=== PATIENT | male | born 1970 | race Caucasian/White ===

== ENCOUNTER → 2017-01-24 | Outpatient (CLI) | payer BC ==
[~2017-01-24] MED LIST: FLOXIN OTIC DROP5 ML OT; LEVAQUIN 5500 MG/TA1 PO; NORCO 325 MG-51 TAB PO; PERCOCET 325 MG1 TA2 PO
== END ==
LOC: COL.RAD 13:25
DX: N43.3 Hydrocele, unspecified (principal); I86.1 Scrotal varices; N50.89 Other specified disorders of the male genital organs

== ENCOUNTER 2017-01-28 12:21 | Emergency (ER) | payer BC ==
[~2017-01-28] VITALS: Ht 182.9 cm; Wt 80.5 kg
[2017-01-28 12:25] VITALS: TEMP 98.5
[2017-01-28] MEDS ORDERED: LEVAQUIN 5500 MG/TA1 PO (12:28)
[2017-01-28] MEDS ORDERED: NORCO 325 MG-51 TAB PO (12:29)
[2017-01-28 13:41] LABS: BASO % 0.4 % (0.0-2.0); EOS # 0.2 (0.0-0.7); EOS % 2.3 % (0-4.0); GRAN # 4.6 (1.4-6.5); GRAN % 66.1 % (42.2-75.2); HEMATOCRIT 42.3 % (42.0-52.0); HEMOGLOBIN 14.5 g/dl (13.5-18.0); LYMPH # 1.6 (1.2-3.4); LYMPH % 23.4 % (20.0-51.0); MEAN CELL VOLUME 87 fl (80.0-100.0); MEAN CORPUSCULAR HEMOGLOBIN 30 pg (27.0-31.0); MEAN CORPUSCULAR HGB CONC 34 g/dl (33.0-37.0); MONO # 0.5 (0.1-0.6); MONO % 7.5 % (1.7-9.3); PLATELET COUNT 244 K/mm3 (130-400); RED BLOOD COUNT 4.85 M/mm3 (4.20-5.60); REDCELL DISTRIBUTION WIDTH-CV 12.3 % (11.5-14.5); WHITE BLOOD COUNT 6.9 K/mm3 (4.8-10.8)
[2017-01-28 13:56] LABS: ADJUSTED CALCIUM 8.7 mg/dL (8.4-10.2); ALANINE AMINOTRANSFERASE 34 U/L (21-72); ALBUMIN 4.4 gm/dL (3.5-5.0); ALKALINE PHOSPHATASE 88 U/L (50-136); ANION GAP 10 mmol/L (7-16); BILIRUBIN,TOTAL 0.5 mg/dL (0.0-1.0); BLOOD UREA NITROGEN 17 mg/dL (9-20); CARBON DIOXIDE 25 mmol/L (22-30); CHLORIDE 102 mmol/L (98-107); CREATININE, serum 0.84 mg/dL (0.66-1.25); GLUCOSE 115 mg/dL (74-106); POTASSIUM 4.1 mmol/L (3.4-5.0); SODIUM 136 mmol/L (137-145); TOTAL PROTEIN 7.4 gm/dL (6.4-8.2)
[2017-01-28 14:03] LABS: C-REACTIVE PROTEIN < 0.5 mg/dL (0.0-0.9)
[2017-01-28 14:09] LABS: PH 6 (5-8); SQUAMOUS EPITHELIAL None Seen /hpf; URINE APPEARANCE Hazy; URINE BACTERIA None Seen /hpf; URINE BILIRUBIN Negative (NEGATIVE); URINE BLOOD Negative (NEGATIVE); URINE COLOR Yellow; URINE GLUCOSE Negative (NEGATIVE); URINE KETONE Negative (NEGATIVE); URINE RBC 0-2 /hpf; URINE UROBILINOGEN Negative (NEGATIVE); URINE WBC 0-2 /hpf
[2017-01-28] MEDS ORDERED: PERCOCET 325 MG1 TA2 PO (15:15)
[2017-01-28] MEDS ORDERED: FLOXIN OTIC DROP5 ML OT (15:15)
[2017-01-28 15:59] VITALS: BP 130/82; PULSE 70
== END 2017-01-28 16:01 | disposition home or self-care (01) ==
LOC: COL.ER 12:21
PROVIDERS: Emergency Medicine
DX: N45.2 Orchitis (principal); N45.1 Epididymitis
CPT/HCPCS: J1170; J1885; J2405; J7030; Q9967